=== PATIENT | female | born 1955 | race Caucasian/White ===

== ENCOUNTER → 2021-06-02 | Day surgery (SDC) | payer MEDICARE, OTHER ==
[~2021-06-02] VITALS: Ht 157.5 cm; Wt 90.7 kg
[~2021-06-02] MED LIST: CELEXA10 MG PO; LIPITOR20 MG PO; LISINOPRIL-HCT1 EACH PO; METFORMIN HCL500 MG PO
[2021-06-02 07:57] LABS: HCT 40.3 % (37.0-47.0); HGB 13.3 g/dl (12.5-16.0); MCH 29.5 pg (25.0-31.0); MCV 89.4 fL (78.0-100.0); MPV 11.7 fL (6.0-9.5); RBC 4.51 M/uL (4.20-5.40); RDW 13.6 % (11.5-14.0); WBC 6.9 K/uL (4.0-10.5)
[2021-06-02 08:33] LABS: BILIRUBIN - TOTAL 1.1 mg/dL (0.2-1.0); CREATININE 0.89 mg/dL (0.51-0.95); GLOBULIN (CALCULATION) 3.5 g/dL; POTASSIUM 3.3 mmol/L (3.5-5.1); TOTAL PROTEIN 7.5 g/dL (6.4-8.2)
== END | disposition home or self-care (01) ==
LOC: FAS 07:15
PROVIDERS: Surgery
DX: Z12.11 Encounter for screening for malignant neoplasm of colon (principal); K57.30 Diverticulosis of large intestine without perforation or abscess without bleeding; M19.90 Unspecified osteoarthritis, unspecified site; F32.9 Major depressive disorder, single episode, unspecified; E78.5 Hyperlipidemia, unspecified; I10 Essential (primary) hypertension; Z88.0 Allergy status to penicillin
CPT/HCPCS: 36415; 80053; 82962; J2250; J2704; J7120